=== PATIENT | male | born 1990 | race American Indian/Alaskan Native ===

== ENCOUNTER 2016-04-22 14:23 | Emergency (ER) | payer SELFPAY ==
[2016-04-22 15:31] VITALS: BP 147/82
== END 2016-04-22 19:15 | disposition left against medical advice (07) ==
LOC: ED 14:23
DX: M54.5 Low back pain (principal); M25.562 Pain in left knee; Z53.21 Procedure and treatment not carried out due to patient leaving prior to being seen by health care provider

== ENCOUNTER 2017-04-04 06:56 | Emergency (ER) | payer SELFPAY ==
[2017-04-04 07:28] VITALS: BP 137/85
--- NOTE | 2017-04-04 10:06 | Emergency Department Report ---
ED ENT HPI - General Chief complaint: Dental/Oral Stated complaint: TOOTHACHE Time Seen by Provider: 04/04/17 09:08 Source: patient Mode of arrival: Ambulatory Limitations: No Limitations - History of Present Illness Initial comments: This is a 26-year-old male nontoxic, well nourished in appearance, no acute signs of distress presents to the ED with c/o of toothache x1 day. Patient describes pain as aching with level of 8/10. Patient denies any trauma. Denies any facial swelling, numbness, tingling, fever, chills, headache, stiff neck, blurry vision, chest pain, shortness of breath, nausea or vomiting. Patient states allergies to aspirin. Denies PMH besides asthma. MD complaint: tooth pain -: days(s) (1) Location: tooth # (04/20) 1 - pain Severity: mild Severity scale (0 -10): 8 Quality: aching Consistency: constant Improves with: none Worsens with: none Context- Dental: history of dental caries, poor dental care Associated Symptoms: gum swelling, toothache. denies: fever, cough, pain with swallowing, sore throat, tinnitus, hearing loss, discharge from ear, rhinorrhea - Related Data Previous Rx's Medication Instructions Recorded Last Taken Type Acetaminophen 500 mg PO Q6H #30 capsule 04/04/17 Unknown Rx Amoxicillin/K Clav Tab [Augmentin 1 tab PO Q12HR #20 tab 04/04/17 Unknown Rx 875 mg] Allergies Allergy/AdvReac Type Severity Reaction Status Date / Time aspirin Allergy Swelling Verified 04/04/17 07:24 ED Dental HPI - General Chief complaint: Dental/Oral Stated complaint: TOOTHACHE Time Seen by Provider: 04/04/17 09:08 Source: patient Mode of arrival: Ambulatory Limitations: No Limitations - Related Data Previous Rx's Medication Instructions Recorded Last Taken Type Acetaminophen 500 mg PO Q6H #30 capsule 04/04/17 Unknown Rx Amoxicillin/K Clav Tab [Augmentin 1 tab PO Q12HR #20 tab 04/04/17 Unknown Rx 875 mg] Allergies Allergy/AdvReac Type Severity Reaction Status Date / Time aspirin Allergy Swelling Verified 04/04/17 07:24 ED Review of Systems ROS: Stated complaint: TOOTHACHE Other details as noted in HPI Constitutional: denies: chills, fever Eyes: denies: eye pain, eye discharge, vision change ENT: dental pain. denies: ear pain, throat pain Respiratory: denies: cough, shortness of breath, wheezing Cardiovascular: denies: chest pain, palpitations Endocrine: no symptoms reported Gastrointestinal: denies: abdominal pain, nausea, diarrhea Genitourinary: denies: urgency, dysuria Musculoskeletal: denies: back pain, joint swelling, arthralgia Skin: denies: rash, lesions Neurological: denies: headache, weakness, paresthesias Psychiatric: denies: anxiety, depression Hematological/Lymphatic: denies: easy bleeding, easy bruising ED Past Medical Hx - Past Medical History Previous Medical History?: Yes Hx Asthma: Yes - Surgical History Past Surgical History?: Yes Additional Surgical History: NASAL SURGERY S/P FX - Social History Smoking Status: Current Every Day Smoker Substance Use Type: Marijuana - Medications Home Medications: Home Medications Medication Instructions Recorded Confirmed Last Taken Type Acetaminophen 500 mg PO Q6H #30 capsule 04/04/17 Unknown Rx Amoxicillin/K Clav Tab [Augmentin 1 tab PO Q12HR #20 tab 04/04/17 Unknown Rx 875 mg] ED Physical Exam - General Limitations: No Limitations General appearance: alert, in no apparent distress - Head Head exam: Present: atraumatic, normocephalic - Eye Eye exam: Present: normal appearance - ENT ENT exam: Present: mucous membranes moist, TM's normal bilaterally, normal external ear exam - Expanded ENT Exam Expanded Ear exam: Present: normal external inspection Mouth exam: Present: normal external inspection, tongue normal. Absent: drooling, trismus, muffled voice, tongue elevation, laceration Teeth exam: Present: dental caries, fractured tooth # (1 and 2), dental tenderness # (1 and 2), gingival enlargement, other (no abscess or swelling noted) 1 - Fractured, Dental Tenderness Throat exam: Positive: normal inspection. Negative: tonsillar erythema, tonsillomegaly, tonsillar exudate, R peritonsillar mass, L peritonsillar mass - Neck Neck exam: Present: normal inspection - Respiratory Respiratory exam: Present: normal lung sounds bilaterally. Absent: respiratory distress - Cardiovascular Cardiovascular Exam: Present: regular rate, normal rhythm. Absent: systolic murmur, diastolic murmur, rubs, gallop - GI/Abdominal GI/Abdominal exam: Present: soft, normal bowel sounds - Rectal Rectal exam: Present: deferred - Extremities Exam Extremities exam: Present: normal inspection - Back Exam Back exam: Present: normal inspection - Neurological Exam Neurological exam: Present: alert, oriented X3 - Psychiatric Psychiatric exam: Present: normal affect, normal mood - Skin Skin exam: Present: warm, dry, intact, normal color. Absent: rash ED Course Vital Signs 04/04/17 07:24 Temperature 98.7 F Pulse Rate 93 H Respiratory 18 Rate Blood Pressure 137/85 O2 Sat by Pulse 97 Oximetry - Reevaluation(s) Reevaluation #1: 04/04/17 10:04 Patient is speaking in full sentences with no signs of distress noted. ED Medical Decision Making - Medical Decision Making This is a 26-year-old that presents with dental caries and gingivitis. Patient is stable and was examined by me. Patient received Augmentin at discharge and Tylenol. Patient was instructed Follow-up with a dentist in 3-5 days or if symptoms worsen and continue return to emergency room as soon as possible. At time time of discharge, the patient does not seem toxic or ill in appearance. No acute signs of distress noted. Patient agrees to discharge treatment plan of care. No further questions noted by the patient. Critical care attestation.: If time is entered above; I have spent that time in minutes in the direct care of this critically ill patient, excluding procedure time. ED Disposition Clinical Impression: Dental caries, Gingivitis Disposition: DC- TO HOME OR SELFCARE Is pt being admited?: No Does the pt Need Aspirin: No Condition: Stable Instructions: Dental Caries (ED), Gingivitis (ED), Amoxicillin/Clavulanate Potassium (By mouth) Additional Instructions: Follow-up with a dentist in 3-5 days or if symptoms worsen and continue return to emergency room as soon as possible. Prescriptions: Acetaminophen 500 mg PO Q6H #30 capsule Amoxicillin/K Clav Tab [Augmentin 875 mg] 1 tab PO Q12HR #20 tab Referrals: PRIMARY CAREMD [Primary Care Provider] - 3-5 Days SILVERIO CARPENTER MD [Staff Physician] - 3-5 Days [facility] [Outside] - 3-5 Days Forms: Work/School Release Form(ED)
== END 2017-04-04 10:30 | disposition home or self-care (01) ==
LOC: ED 06:56
DX: K02.9 Dental caries, unspecified (principal); K05.10 Chronic gingivitis, plaque induced; J45.909 Unspecified asthma, uncomplicated; F17.200 Nicotine dependence, unspecified, uncomplicated; F12.10 Cannabis abuse, uncomplicated; Z88.6 Allergy status to analgesic agent
CPT/HCPCS: 99282

== ENCOUNTER 2017-10-15 05:31 | Emergency (ER) | payer SELFPAY ==
--- NOTE | 2017-10-15 06:21 | Emergency Department Report ---
ED Chest Pain HPI - General Chief Complaint: Chest Pain Stated Complaint: CHEST PAIN Time Seen by Provider: 10/15/17 06:20 Source: patient Mode of arrival: Ambulatory Limitations: No Limitations - History of Present Illness Initial Comments: 27-year-old male with no previous medical history. He states he's had a "harsh cough." He states that he produced a little bit of white sputum but mostly swallows it. He's had no fever or chills. He is not complaining of chest pain. He is not complaining of dyspnea. He states he's been prescribed something for his asthma but is not taking it now. He's been previously on blood pressure medicine but he states he is not taking it because his blood pressure has improved. He has no risk factors for coronary artery disease that he is aware of. Actually have chest pain per se. He denies sweating nausea or vomiting. He has not traveled. He denies leg pain. He's had no pleuritic symptoms. Occasionally has trouble with his asthma but not currently. MD Complaint: other -: Gradual, days(s) Onset: during rest Pain Radiation: none Improves With: nothing Context: other (none of the above) re: denies: nausea, vomting, diaphoresis, dyspnea, sense of impending doom Other Symptoms: cough - Related Data Previous Rx's Medication Instructions Recorded Last Taken Type Acetaminophen 500 mg PO Q6H #30 capsule 04/04/17 Unknown Rx Amoxicillin/K Clav Tab [Augmentin 1 tab PO Q12HR #20 tab 04/04/17 Unknown Rx 875 mg] Albuterol Sulfate [Ventolin HFA] 2 puff IH Q4H PRN #1 hfa.aer.ad 10/15/17 Unknown Rx Azithromycin [Zithromax] 250 mg PO DAILY #6 tablet 10/15/17 Unknown Rx Benzonatate [Tessalon Perles] 100 mg PO Q8HR #10 capsule 10/15/17 Unknown Rx Allergies Allergy/AdvReac Type Severity Reaction Status Date / Time No Known Allergies Allergy Verified 10/15/17 05:52 Heart Score - HEART Score History: Slightly suspicious EKG: Normal Age: < 45 Risk factors: 1-2 risk factors Troponin: < normal limit HEART Score: 1 - Critical Actions Critical Actions: 0-3 pts:0.9-1.7%risk of adverse cardiac event.Candidate for discharge ED Review of Systems ROS: Stated complaint: CHEST PAIN Other details as noted in HPI Constitutional: denies: chills, fever Eyes: denies: eye pain, eye discharge, vision change ENT: congestion (states he feels like he has a sinus infection). denies: ear pain, throat pain Respiratory: cough. denies: shortness of breath, wheezing Cardiovascular: denies: chest pain, palpitations Endocrine: no symptoms reported Gastrointestinal: denies: abdominal pain, nausea, diarrhea Genitourinary: denies: urgency, dysuria Musculoskeletal: denies: back pain, joint swelling, arthralgia Skin: denies: rash, lesions Neurological: denies: headache, weakness, paresthesias Psychiatric: denies: anxiety, depression Hematological/Lymphatic: denies: easy bleeding, easy bruising ED Past Medical Hx - Past Medical History Hx Hypertension: Yes Hx Asthma: Yes - Surgical History Past Surgical History?: Yes Additional Surgical History: NASAL SURGERY S/P FX - Social History Smoking Status: Current Every Day Smoker Substance Use Type: Alcohol - Medications Home Medications: Home Medications Medication Instructions Recorded Confirmed Last Taken Type Acetaminophen 500 mg PO Q6H #30 capsule 04/04/17 Unknown Rx Amoxicillin/K Clav Tab [Augmentin 1 tab PO Q12HR #20 tab 04/04/17 Unknown Rx 875 mg] Albuterol Sulfate [Ventolin HFA] 2 puff IH Q4H PRN #1 hfa.aer.ad 10/15/17 Unknown Rx Azithromycin [Zithromax] 250 mg PO DAILY #6 tablet 10/15/17 Unknown Rx Benzonatate [Tessalon Perles] 100 mg PO Q8HR #10 capsule 10/15/17 Unknown Rx ED Physical Exam - General Limitations: No Limitations General appearance: alert, in no apparent distress - Head Head exam: Present: atraumatic, normocephalic - Eye Eye exam: Present: normal appearance. Absent: scleral icterus - ENT ENT exam: Present: mucous membranes moist - Neck Neck exam: Present: normal inspection - Respiratory Respiratory exam: Present: normal lung sounds bilaterally. Absent: respiratory distress - Cardiovascular Cardiovascular Exam: Present: regular rate, normal rhythm. Absent: systolic murmur, diastolic murmur, rubs, gallop - GI/Abdominal GI/Abdominal exam: Present: soft, normal bowel sounds. Absent: distended, tenderness, guarding, rebound, rigid - Rectal Rectal exam: Present: deferred - Extremities Exam Extremities exam: Present: normal inspection, normal capillary refill. Absent: full ROM, tenderness, pedal edema, joint swelling, calf tenderness - Back Exam Back exam: Present: normal inspection - Neurological Exam Neurological exam: Present: alert, oriented X3, CN II-XII intact. Absent: motor sensory deficit - Psychiatric Psychiatric exam: Present: normal affect, normal mood - Skin Skin exam: Present: warm, dry, intact, normal color. Absent: rash ED Course Vital Signs 10/15/17 10/15/17 10/15/17 05:52 06:23 07:00 Temperature 99.4 F 98.8 F Pulse Rate 98 H 94 H 90 Respiratory 18 19 15 Rate Blood Pressure 148/85 152/76 Blood Pressure 144/84 [Left] O2 Sat by Pulse 100 97 99 Oximetry - Reevaluation(s) Reevaluation #1: 10/15/17 07:00 Patient resting comfortably or talking on his cell phone on my reassessments. DUY score - Duy Score Age > 65: (0) No Aspirin use within the Past 7 Days: (0) No 3 or more CAD Risk Factors: (0) No 2 or more Angina events in past 24 hrs: (0) No Known CAD with more than 50% Stenosis: (0) No Elevated Cardiac Markers: (0) No ST Deviation Greater than 0.5mm: (0) No DUY Score: 0 ED Medical Decision Making - Lab Data Result diagrams: 10/15/17 06:19 10/15/17 06:19 Laboratory Results - last 24 hr 10/15/17 10/15/17 06:15 06:19 WBC 7.7 RBC 4.78 Hgb 13.4 Hct 39.7 MCV 83 L MCH 28 MCHC 34 RDW 13.4 Plt Count 210 Lymph % (Auto) 19.1 [place] % (Auto) 13.7 H Eos % (Auto) 0.4 Baso % (Auto) 0.3 Lymph # 1.5 [place] # 1.1 H Eos # 0.0 Baso # 0.0 Seg Neutrophils % 66.5 Seg Neutrophils # 5.1 Urine Color Yellow Urine Turbidity Clear Urine pH 5.0 Ur Specific [place] 1.029 Urine Protein 30 mg/dl Urine Glucose (UA) Neg Urine Ketones Neg Urine Blood Sm Urine Nitrite Neg Urine Bilirubin Neg Urine Urobilinogen 2.0 Ur Leukocyte Esterase Neg Urine WBC (Auto) 2.0 Urine RBC (Auto) 4.0 U Epithel Cells (Auto) < 1.0 Hyaline Casts 27 Urine Mucus 3+ Laboratory Results - last 24 hr 10/15/17 10/15/17 06:15 06:19 WBC 7.7 RBC 4.78 Hgb 13.4 Hct 39.7 MCV 83 L MCH 28 MCHC 34 RDW 13.4 Plt Count 210 Lymph % (Auto) 19.1 [place] % (Auto) 13.7 H Eos % (Auto) 0.4 Baso % (Auto) 0.3 Lymph # 1.5 [place] # 1.1 H Eos # 0.0 Baso # 0.0 Seg Neutrophils % 66.5 Seg Neutrophils # 5.1 Urine Color Yellow Urine Turbidity Clear Urine pH 5.0 Ur Specific [place] 1.029 Urine Protein 30 mg/dl Urine Glucose (UA) Neg Urine Ketones Neg Urine Blood Sm Urine Nitrite Neg Urine Bilirubin Neg Urine Urobilinogen 2.0 Ur Leukocyte Esterase Neg Urine WBC (Auto) 2.0 Urine RBC (Auto) 4.0 U Epithel Cells (Auto) < 1.0 Hyaline Casts 27 Urine Mucus 3+ Laboratory Results - last 24 hr 10/15/17 10/15/17 06:15 06:19 WBC 7.7 RBC 4.78 Hgb 13.4 Hct 39.7 MCV 83 L MCH 28 MCHC 34 RDW 13.4 Plt Count 210 Lymph % (Auto) 19.1 [place] % (Auto) 13.7 H Eos % (Auto) 0.4 Baso % (Auto) 0.3 Lymph # 1.5 [place] # 1.1 H Eos # 0.0 Baso # 0.0 Seg Neutrophils % 66.5 Seg Neutrophils # 5.1 Urine Color Yellow Urine Turbidity Clear Urine pH 5.0 Ur Specific [place] 1.029 Urine Protein 30 mg/dl Urine Glucose (UA) Neg Urine Ketones Neg Urine Blood Sm Urine Nitrite Neg Urine Bilirubin Neg Urine Urobilinogen 2.0 Ur Leukocyte Esterase Neg Urine WBC (Auto) 2.0 Urine RBC (Auto) 4.0 U Epithel Cells (Auto) < 1.0 Hyaline Casts 27 Urine Mucus 3+ Laboratory Results - last 24 hr 10/15/17 10/15/17 10/15/17 06:15 06:19 06:19 WBC 7.7 RBC 4.78 Hgb 13.4 Hct 39.7 MCV 83 L MCH 28 MCHC 34 RDW 13.4 Plt Count 210 Lymph % (Auto) 19.1 [place] % (Auto) 13.7 H Eos % (Auto) 0.4 Baso % (Auto) 0.3 Lymph # 1.5 [place] # 1.1 H Eos # 0.0 Baso # 0.0 Seg Neutrophils % 66.5 Seg Neutrophils # 5.1 Sodium 141 Potassium 3.8 Chloride 102.9 Carbon Dioxide 29 Anion Gap 13 BUN 9 Creatinine 0.9 Estimated GFR > 60 BUN/Creatinine Ratio 10 Glucose 100 Calcium 9.3 Total Bilirubin 0.20 AST 21 ALT 18 Alkaline Phosphatase 68 Total Protein 8.0 Albumin 4.0 Albumin/Globulin Ratio 1.0 Urine Color Yellow Urine Turbidity Clear Urine pH 5.0 Ur Specific [place] 1.029 Urine Protein 30 mg/dl Urine Glucose (UA) Neg Urine Ketones Neg Urine Blood Sm Urine Nitrite Neg Urine Bilirubin Neg Urine Urobilinogen 2.0 Ur Leukocyte Esterase Neg Urine WBC (Auto) 2.0 Urine RBC (Auto) 4.0 U Epithel Cells (Auto) < 1.0 Hyaline Casts 27 Urine Mucus 3+ Laboratory Results - last 24 hr 10/15/17 10/15/17 10/15/17 06:15 06:19 06:19 WBC 7.7 RBC 4.78 Hgb 13.4 Hct 39.7 MCV 83 L MCH 28 MCHC 34 RDW 13.4 Plt Count 210 Lymph % (Auto) 19.1 [place] % (Auto) 13.7 H Eos % (Auto) 0.4 Baso % (Auto) 0.3 Lymph # 1.5 [place] # 1.1 H Eos # 0.0 Baso # 0.0 Seg Neutrophils % 66.5 Seg Neutrophils # 5.1 Sodium 141 Potassium 3.8 Chloride 102.9 Carbon Dioxide 29 Anion Gap 13 BUN 9 Creatinine 0.9 Estimated GFR > 60 BUN/Creatinine Ratio 10 Glucose 100 Calcium 9.3 Total Bilirubin 0.20 AST 21 ALT 18 Alkaline Phosphatase 68 Troponin T Total Protein 8.0 Albumin 4.0 Albumin/Globulin Ratio 1.0 Urine Color Yellow Urine Turbidity Clear Urine pH 5.0 Ur Specific [place] 1.029 Urine Protein 30 mg/dl Urine Glucose (UA) Neg Urine Ketones Neg Urine Blood Sm Urine Nitrite Neg Urine Bilirubin Neg Urine Urobilinogen 2.0 Ur Leukocyte Esterase Neg Urine WBC (Auto) 2.0 Urine RBC (Auto) 4.0 U Epithel Cells (Auto) < 1.0 Hyaline Casts 27 Urine Mucus 3+ 10/15/17 06:19 WBC RBC Hgb Hct MCV MCH MCHC RDW Plt Count Lymph % (Auto) [place] % (Auto) Eos % (Auto) Baso % (Auto) Lymph # [place] # Eos # Baso # Seg Neutrophils % Seg Neutrophils # Sodium Potassium Chloride Carbon Dioxide Anion Gap BUN Creatinine Estimated GFR BUN/Creatinine Ratio Glucose Calcium Total Bilirubin AST ALT Alkaline Phosphatase Troponin T < 0.010 Total Protein Albumin Albumin/Globulin Ratio Urine Color Urine Turbidity Urine pH Ur Specific [place] Urine Protein Urine Glucose (UA) Urine Ketones Urine Blood Urine Nitrite Urine Bilirubin Urine Urobilinogen Ur Leukocyte Esterase Urine WBC (Auto) Urine RBC (Auto) U Epithel Cells (Auto) Hyaline Casts Urine Mucus - EKG Data -: EKG Interpreted by Me EKG shows normal: sinus rhythm, axis, intervals, QRS complexes, ST-T waves Rate: normal - EKG Data When compared to previous EKG there are: no significant change Interpretation: no acute changes - Radiology Data Radiology results: report reviewed (no acute pulmonary process) Critical care attestation.: If time is entered above; I have spent that time in minutes in the direct care of this critically ill patient, excluding procedure time. ED Disposition Clinical Impression: Acute bronchitis Qualifiers: Bronchitis organism: unspecified organism Qualified Code(s): J20.9 - Acute bronchitis, unspecified Disposition: 09 OP ADMIT IP TO THIS HOSP Is pt being admited?: No Does the pt Need Aspirin: No Condition: Stable Instructions: Acute Bronchitis (ED) Additional Instructions: Follow-up with a primary care provider. You should have your blood pressure periodically rechecked. You can have this done at a supermarket or a pharmacy. Rx as directed. Return any acute change or problem. Prescriptions: Albuterol Sulfate [Ventolin HFA] 2 puff IH Q4H PRN #1 hfa.aer.ad PRN Reason: Shortness Of Breath Azithromycin [Zithromax] 250 mg PO DAILY #6 tablet Benzonatate [Tessalon Perles] 100 mg PO Q8HR #10 capsule Referrals: PRIMARY CARE, [Primary Care Provider] - 3-5 Days [facility] [Provider Group] - 3-5 Days Time of Disposition: 07:02
--- NOTE | 2017-10-15 06:23 | XRay Report ---
FINAL REPORT EXAM: XR CHEST ROUTINE 2V HISTORY: Chest Pain TECHNIQUE: PA and lateral chest radiographs PRIORS: None. FINDINGS: No mediastinal shift. Cardiac silhouette is not enlarged. No pneumothorax, effusion, or focal pulmonary opacity. No acute skeletal finding. IMPRESSION: No focal pulmonary opacity.
[2017-10-15 06:50] LABS: Bilirubin,Urine NEG (Negative); Blood,Urine SM (Negative); Color,Urine Yellow (Yellow); Hyaline Casts,Urine 27 /LPF; Mucus,Urine 3+ /HPF
[2017-10-15 07:00] LABS: Basophils % (Auto) 0.3 % (0.0-1.8); Eosinophils % (Auto) 0.4 % (0.0-4.3); Hematocrit 39.7 % (35.5-45.6); Hemoglobin 13.4 gm/dl (11.8-15.2); Lymphocytes # (Auto) 1.5 K/mm3 (1.2-5.4); Lymphocytes % (Auto) 19.1 % (13.4-35.0); Mean Corpuscular HGB Conc 34 % (32-34); Mean Corpuscular Hemoglobin 28 pg (28-32); Mean Corpuscular Volume 83 fl (84-94); Monocytes # (Auto) 1.1 K/mm3 (0.0-0.8); Monocytes % (Auto) 13.7 % (0.0-7.3); Platelet Count 210 K/mm3 (140-440); Red Blood Count 4.78 M/mm3 (3.65-5.03); Red Cell Distribution Width 13.4 % (13.2-15.2)
[2017-10-15 07:15] LABS: Alanine Aminotransferase 18 units/L (7-56); BUN/Creatinine Ratio 10; Blood Urea Nitrogen 9 mg/dL (9-20); Calcium 9.3 mg/dL (8.4-10.2); Hemolysis Index 3
[2017-10-15 08:32] VITALS: BP 149/77
== END 2017-10-15 08:34 | disposition admitted as inpatient to this hospital (09) ==
LOC: ED 05:31
DX: J20.9 Acute bronchitis, unspecified (principal); I10 Essential (primary) hypertension; J45.909 Unspecified asthma, uncomplicated; F17.200 Nicotine dependence, unspecified, uncomplicated; Z98.890 Other specified postprocedural states
CPT/HCPCS: 36415; 71046; 80053; 81001; 84484; 85025; 93005; 93010

== ENCOUNTER 2019-01-01 20:51 | Emergency (ER) | payer SELFPAY ==
[2019-01-01 21:05] VITALS: BP 141/99
--- NOTE | 2019-01-01 21:19 | Event Note ---
ED Screening Note Date of service: 01/01/19 Time: 21:16 ED Screening Note: This is a 28 y.o. M. that presents to the ER with dental pain for 2 days. Patient reports chest pain started today while playing basketball. Patent states he ran out of inhaler. Reports the entire lower teeth are in pain. PMH of asthma. This initial assessment/diagnostic orders/clinical plan/treatment(s) is/are subject to change based on patients health status, clinical progression and re- assessment by fellow clinical providers in the ED. Further treatment and workup at subsequent clinical providers discretion. Patient/guardian urged not to elope from the ED as their condition may be serious if not clinically assessed and managed. Initial orders include: EKG & CXR
--- NOTE | 2019-01-01 22:15 | XRay Report ---
CHEST 1 VIEW INDICATION: MAIN: Chest Pain PT SD HAS hX OF ASTHMA. WAS [employer] AND HAD AN EPISODE. VIKA Banks.HECTOR. COMPARISON: 10/15/2017. FINDINGS: Support devices: None. Heart: Normal. Lungs/Pleura: No consolidation, effusion, or pneumothorax. There is mild peribronchial cuffing which could be seen in the setting of lower airways disease. IMPRESSION: 1. No pneumonia. Probable mild lower airways disease. Signer Name: Roney Mitchell MD Signed: 01/01/2019 10:10 PM Workstation Name: [id number]
== END 2019-01-01 22:30 | disposition left against medical advice (07) ==
LOC: ED 20:51
DX: K08.89 Other specified disorders of teeth and supporting structures (principal); Z53.21 Procedure and treatment not carried out due to patient leaving prior to being seen by health care provider
CPT/HCPCS: 71045; 93005; 93010

== ENCOUNTER 2019-05-22 12:23 | Emergency (ER) | payer SELFPAY ==
[2019-05-22 13:15] VITALS: BP 120/74
--- NOTE | 2019-05-22 13:16 | Event Note ---
ED Screening Note Date of service: 05/22/19 ED Screening Note: This initial assessment/diagnostic orders/clinical plan/treatment(s) is/are subject to change based on patients health status, clinical progression and re- assessment by fellow clinical providers in the ED. Further treatment and workup at subsequent clinical providers discretion. Patient/guardian urged not to elope from the ED as their condition may be serious if not clinically assessed and managed. Initial orders include:
--- NOTE | 2019-05-22 15:07 | XRay Report ---
CHEST 2 VIEWS INDICATION: FB pain. COMPARISON: 01/01/2019 FINDINGS: Support devices: None. Heart: Within normal limits. Lungs/pleura: No acute air space or interstitial disease. No pneumothorax. Additional findings: None. IMPRESSION: No acute findings. Signer Name: Narciso Miranda Jr, MD Signed: 05/22/2019 3:03 PM Workstation Name: [id number]
== END 2019-05-22 15:00 | disposition left against medical advice (07) ==
LOC: ED 12:23
DX: R05 Cough (principal); Z53.21 Procedure and treatment not carried out due to patient leaving prior to being seen by health care provider
CPT/HCPCS: 71046